=== PATIENT | male | born 1955 | race Caucasian/White ===

== ENCOUNTER 2025-05-05 22:19 | Emergency (ER) | payer MEDICARE, MEDICAID ==
[~2025-05-05] VITALS: Ht 170.2 cm; Wt 70.5 kg
[2025-05-05 22:29] VITALS: TEMP 98.1
[2025-05-06 02:23] VITALS: BP 138/61; PULSE 63; RESP 18; O2SAT 99
[2025-05-06] MEDS: FLUORESCEIN SODIUM 1 MG STRIP OS ONE (03:04)
[2025-05-06] MEDS: PROPARACAINE HCL 0.5% 15 ML OPHTHALMIC SOLUTION OD ONE (03:04)
[2025-05-06] MEDS: ERYTHROMYCIN 0.5% 3.5 GM TUBE OPHTHALMIC OINTMENT OD ONE (04:14)
== END 2025-05-06 05:30 | disposition home or self-care (01) ==
LOC: EMS 22:22
DX: S05.01XA Injury of conjunctiva and corneal abrasion without foreign body, right eye, initial encounter (principal); I10 Essential (primary) hypertension; X58.XXXA Exposure to other specified factors, initial encounter; Y93.89 Activity, other specified; Y92.89 Other specified places as the place of occurrence of the external cause; Y99.8 Other external cause status
CPT/HCPCS: 70480; 99284; J9035; Z7502; Z7610